=== PATIENT | male | born 1965 | race Caucasian/White ===

== ENCOUNTER 2017-05-13 16:51 | Emergency (ER) | payer MEDICAID ==
[~2017-05-13] VITALS: Ht 185.4 cm; Wt 108.9 kg
--- NOTE | ~2017-05-13 | EKG ---
PATIENT: PRIMO ESPINOSA UNIT #: [id number] Ventricular Rate: 77 BPM Atrial Rate: 77 BPM P-R Interval: 144 ms QRS Duration: 108 ms Q-T Interval: 370 ms QTC Calculation(Bezet): 418 ms P [place]: 14 degrees Calculated R [place]: 31 degrees Calculated T [place]: 93 degrees Diagnosis Line: Normal sinus rhythm Diagnosis Line: ST and T wave abnormality, consider lateral ischemia Diagnosis Line: acute inferior wall [place] Diagnosis Line: Abnormal ECG Diagnosis Line: When compared with ECG of 15-SEP-2010 09:09, Diagnosis Line: Non-specific change in ST segment in Inferior Diagnosis Line: leads Inferior leads Diagnosis Line: T wave inversion now evident in Lateral leads Diagnosis Line: ST elevation now present in Inferior leads Diagnosis Line: Confirmed by TRISTEN FUNG MD ([id number]) on 05/14/2017 Diagnosis Line: 4:02:55 PM INTERPRETING MD: KENTON HOLMAN
--- NOTE | ~2017-05-13 | EKG ---
PATIENT: PRIMO ESPINOSA UNIT #: [id number] Ventricular Rate: 83 BPM Atrial Rate: 83 BPM P-R Interval: 146 ms QRS Duration: 108 ms Q-T Interval: 360 ms QTC Calculation(Bezet): 423 ms P [place]: 7 degrees Calculated R [place]: 28 degrees Calculated T [place]: 88 degrees Diagnosis Line: Normal sinus rhythm Diagnosis Line: Nonspecific ST and T wave abnormality Diagnosis Line: Abnormal ECG Diagnosis Line: When compared with ECG of 13-MAY-2017 16:54, Diagnosis Line: (unconfirmed) Diagnosis Line: ST abnormalities improved inferiorly Diagnosis Line: Confirmed by TEODORO ANDRE MD ([id number]) on Diagnosis Line: 05/14/2017 3:48:27 PM INTERPRETING : ASA
--- NOTE | ~2017-05-13 | EKG ---
PATIENT: PRIMO ESPINOSA UNIT #: [id number] Ventricular Rate: 83 BPM Atrial Rate: 83 BPM P-R Interval: 146 ms QRS Duration: 108 ms Q-T Interval: 360 ms QTC Calculation(Bezet): 423 ms P [place]: 7 degrees Calculated R [place]: 28 degrees Calculated T [place]: 88 degrees Diagnosis Line: Normal sinus rhythm Diagnosis Line: Nonspecific ST and T wave abnormality Diagnosis Line: Abnormal ECG Diagnosis Line: When compared with ECG of 13-MAY-2017 16:54, Diagnosis Line: (unconfirmed) Diagnosis Line: ST abnormalities improved inferiorly Diagnosis Line: Confirmed by TEODORO ANDRE MD ([id number]) on Diagnosis Line: 05/14/2017 3:48:27 PM Diagnosis Line: Also confirmed by TRISTEN FUNG MD ([id number]) on Diagnosis Line: 05/14/2017 4:05:28 PM INTERPRETING MD: KENTON HOLMAN
[~2017-05-13 16:51] MED LIST: CRESTOR PO; NEXIUM PO; VICODIN 5/500 T1 TAB PO
[2017-05-13 17:09] LABS: BASOPHIL# 0.1 X10e3 (0-0.3); BASOPHIL% 0.6 % (0-2.5); EOSINOPHIL% 0.1 % (0.0-7.0); HEMATOCRIT 47.5 % (38.0-50.0); HEMOGLOBIN 16.3 gm/dL (13.0-16.0); LYMPHOCYTE# 1.6 X10e3 (1.0-3.5); LYMPHOCYTE% 13.1 % (17.0-45.0); MEAN CELL VOLUME 91.6 FL (83-96); MEAN CORPUSCULAR HEMOGLOBIN 31.4 PG (28-34); MEAN CORPUSCULAR HGB CONC 34.3 g/dL (30-36); MEAN PLATELET VOLUME 7.6 FL (6.5-11.5); MONOCYTE# 0.4 X10e3 (0-1.0); MONOCYTE% 3.2 % (3.0-12.0); PLATELET COUNT 217 X10e3 (140-420); RED BLOOD COUNT 5.18 X10e (3.90-5.60); RED CELL DISTRIBUTION WIDTH 13.5 % (11.0-15.5)
[2017-05-13 17:15] LABS: DIFF IND NO
[2017-05-13 17:33] LABS: POC - CKMB 16.7 ng/mL (0.0-7.9); POC - TROPONIN 0.06 ng/mL (<=0.05)
[2017-05-13 17:40] LABS: ALBUMIN SERUM 4.5 g/dL (3.5-5.0); BILIRUBIN, DIRECT 0.1 mg/dL (0.0-0.2); BILIRUBIN,INDIRECT 0.4 mg/dL (0.0-0.9); BILIRUBIN,TOTAL 0.5 mg/dL (0.2-2.0); BUN/CREATININE RATIO 13.07; CALCIUM SERUM 9.5 mg/dL (8.4-10.2); CREATININE SERUM 1.3 mg/dL (0.6-1.4); GLOM FILT RATE Estimated 63.2 mL/min (>60); POTASSIUM 4.3 mmol/L (3.5-5.1); PROTEIN TOTAL SERUM 7.9 g/dL (6.0-8.3)
[2017-05-13 18:49] LABS: POC - CKMB 24.8 ng/mL (0.0-7.9); POC - TROPONIN 0.2 ng/mL (<=0.05)
== END 2017-05-13 18:30 | disposition short-term general hospital (02) ==
LOC: CED 16:51
PROVIDERS: Emergency Medicine
DX: I21.3 ST elevation (STEMI) myocardial infarction of unspecified site (principal); I11.0 Hypertensive heart disease with heart failure; I50.9 Heart failure, unspecified; I25.10 Atherosclerotic heart disease of native coronary artery without angina pectoris; K21.9 Gastro-esophageal reflux disease without esophagitis; Z79.899 Other long term (current) drug therapy
CPT/HCPCS: 36415; 80048; 80076; 82553; 84484; 85025; 93005; 96374; 99285; J1644